=== PATIENT | female | born 1970 | race Caucasian/White ===

== ENCOUNTER 2020-08-11 11:37 | Emergency (ER) | payer MEDICAID, OTHER ==
[~2020-08-11] VITALS: Ht 160 cm; Wt 73.9 kg
[2020-08-11 12:35] VITALS: BP 128/91
[2020-08-11] MEDS ORDERED: ACETAMINOPHEN 325 MG TAB PO ONE (13:30)
== END 2020-08-11 14:00 | disposition home or self-care (01) ==
LOC: ER 11:37
DX: S09.8XXA Other specified injuries of head, initial encounter (principal); S60.221A Contusion of right hand, initial encounter; Z90.49 Acquired absence of other specified parts of digestive tract; Z98.51 Tubal ligation status; W18.09XA Striking against other object with subsequent fall, initial encounter; Y93.89 Activity, other specified; Y92.89 Other specified places as the place of occurrence of the external cause; Y99.8 Other external cause status
CPT/HCPCS: 70450

== ENCOUNTER 2020-09-29 11:46 | Emergency (ER) | payer OTHER ==
[~2020-09-29] VITALS: Ht 165.1 cm; Wt 77.1 kg
[2020-09-29 11:49] VITALS: BP 118/96
== END 2020-09-29 13:18 | disposition left against medical advice (07) ==
LOC: ER 11:46
DX: R06.02 Shortness of breath (principal); Z53.21 Procedure and treatment not carried out due to patient leaving prior to being seen by health care provider

== ENCOUNTER 2024-08-03 23:43 | Emergency (ER) | payer MEDICAID, OTHER ==
[~2024-08-03] VITALS: Ht 165.1 cm; Wt 68.0 kg
[2024-08-04 03:12] LABS: Basophils # (auto) 0.1 10 ^3/uL (0-0.2); Eosinophils # (auto) 0.2 10 ^3/uL (0-0.8); Eosinophils % (auto) 1.5 % (0.0-7.0); Hematocrit 41.3 % (36.0-46.0); Hemoglobin 14.1 g/dL (12.2-16.2); Lymphocytes # (auto) 4.4 10 ^3/uL (0.4-5.4); Lymphocytes % (auto) 32.7 % (10.0-50.0); Mean Corpuscular Hemoglobin 29.6 pg (28.0-32.0); Mean Corpuscular Volume 86.8 fL (80.0-100.0); Monocytes # (auto) 1.2 10 ^3/uL (0-1.3); Monocytes % (auto) 8.8 % (0.0-12.0); Neutrophils # (auto) 7.5 10 ^3/uL (1.6-8.6); Nucleated Red Blood Cells % 0.2 %; Platelet Count (auto) 218 10^3/uL (140-450); Red Blood Cells 4.76 10^6/uL (4.0-5.20); Red Cell Distribution Width 14.1 % (11.8-14.3); White Blood Cell 13.3 10^3/uL (4.4-10.8)
[2024-08-04 03:20] LABS: Chloride 109 mmol/L (98-107); Potassium 3.6 mmol/L (3.5-5.1); Sodium 142 mmol/L (136-145)
[2024-08-04 03:21] LABS: Anion Gap 4 (5-15); Calcium 9.6 mg/dL (8.7-10.4); Carbon Dioxide 29 mmol/L (20-31)
[2024-08-04 03:25] LABS: INR 0.97 (0.9-1.15); Prothrombin Time 10.3 sec (9.3-11.8)
[2024-08-04 03:26] LABS: Blood Urea Nitrogen 15 mg/dL (9-23); Glucose 243 mg/dL (74-106)
[2024-08-04 04:22] VITALS: BP 138/80; PULSE 92; RESP 19; TEMP 97.7; O2SAT 97
== END 2024-08-04 04:24 | disposition home or self-care (01) ==
LOC: ER 23:43
DX: R58 Hemorrhage, not elsewhere classified (principal); E11.9 Type 2 diabetes mellitus without complications; F17.210 Nicotine dependence, cigarettes, uncomplicated; Z90.49 Acquired absence of other specified parts of digestive tract; Z98.890 Other specified postprocedural states
CPT/HCPCS: 36415; 80048; 85025; 85610